=== PATIENT | male | born 1990 | race Two or more races ===

== ENCOUNTER 2021-02-08 09:04 | Emergency (ER) | payer SELFPAY ==
[~2021-02-08] VITALS: Ht 175.3 cm; Wt 95.3 kg
[2021-02-08 10:11] VITALS: BP 129/81
== END 2021-02-08 11:40 | disposition home or self-care (01) ==
LOC: ER 09:04
DX: U07.1 COVID-19 (principal); J06.9 Acute upper respiratory infection, unspecified
CPT/HCPCS: 36415; 71045; 87426